=== PATIENT | female | born 1945 | race Caucasian/White ===

== ENCOUNTER 2022-05-15 10:58 | Observation (INO) | payer MEDICARE, MEDICAID ==
[2022-05-15 11:42] LABS: #Eosinphils 0.2 10x3/uL (0.0-0.5); #Monocytes 0.6 10x3/uL (0.0-1.1); #Neutrophils 4.7 10x3/uL (1.5-8.4); %Basophils 0.3 % (0.0-2.0); %Eosinophils 3.1 % (0.0-6.0); %Lymphocytes 18.2 % (18.0-47.0); %Monocytes 9.2 % (0.0-10.0); %Neutrophils 68.8 % (40.0-75.0); ALT (SGPT) 37 U/L (8-55); AST (SGOT) 26 U/L (5-34); Albumin 3.9 g/dL (3.4-4.8); Alkaline Phosphatase 59 U/L (40-110); Anion Gap 13 mmol/L (10-20); BUN (Urea Nitrogen) 16 mg/dL (9.8-20.1); Bilirubin, Total 0.3 mg/dL (0.2-1.2); Calc. Creatinine Clearance 0 mL/min (70-130); Calcium 9.4 mg/dL (7.8-10.44); Carbon Dioxide 25 mmol/L (23-31); Chloride 107 mmol/L (98-107); Estimated GFR 91; Globulin 2.6 g/dL (2.4-3.5); Glucose 117 mg/dL (83-110); Mean Corpuscular HGB CONC 32.9 g/dL (32.0-36.0); Mean Corpuscular Hemoglobin 28.7 pg (27.0-33.0); Mean Corpuscular Volume 87.3 fl (81.6-98.3); Mean Platelet Volume 11.3 fl (7.4-10.4); Platelet Count 240 10x3/uL (150-450); Potassium 4.4 mmol/L (3.5-5.1); Protein, Total 6.5 g/dL (5.8-8.1); RBC Distribution Width 13.6 % (11.5-14.5); Red Blood Cell (RBC) Count 4.18 10x6/uL (3.90-5.03); Sodium 141 mmol/L (136-145); White Blood Cell (WBC) Count 6.8 10x3/uL (3.5-10.5)
[2022-05-15] MEDS ORDERED: Acetaminophen 325 MG TAB PO PRN (13:10)
[2022-05-15 14:25] VITALS: BMI 22.8
[2022-05-15] MEDS ORDERED: Iopamidol 370 76% 100 ML VIAL ONE (14:56)
[2022-05-15 16:04] LABS: Magnesium 2.2 mg/dL (1.6-2.6)
[2022-05-15 16:15] LABS: Troponin I Less than 0.010 ng/mL (< 0.028)
[2022-05-15 18:38] LABS: Troponin I Less than 0.010 ng/mL (< 0.028)
[2022-05-15] MEDS: Sodium Chloride 0.9% 1,000 ML IV SCH (19:11)
[2022-05-15] MEDS: risperiDONE 0.5 MG TAB PO SCH (21:11)
[2022-05-15] MEDS: Mirtazapine 15 MG TAB PO SCH (21:11)
[2022-05-15] MEDS: Melatonin 3 MG TAB PO SCH (21:11)
[2022-05-15] MEDS: Atorvastatin Calcium 40 MG TAB PO SCH (21:11)
[2022-05-16 05:34] LABS: #Eosinphils 0.1 10x3/uL (0.0-0.5); #Monocytes 0.5 10x3/uL (0.0-1.1); #Neutrophils 2.9 10x3/uL (1.5-8.4); %Basophils 0.4 % (0.0-2.0); %Eosinophils 1.8 % (0.0-6.0); %Lymphocytes 30.3 % (18.0-47.0); %Monocytes 10.2 % (0.0-10.0); %Neutrophils 57.1 % (40.0-75.0); Hemoglobin 11.7 g/dL (12.0-15.5); Mean Corpuscular HGB CONC 31.4 g/dL (32.0-36.0); Mean Corpuscular Hemoglobin 29.2 pg (27.0-33.0); Mean Platelet Volume 11.1 fl (7.4-10.4); Platelet Count 218 10x3/uL (150-450); RBC Distribution Width 13.5 % (11.5-14.5); Red Blood Cell (RBC) Count 4.01 10x6/uL (3.90-5.03); White Blood Cell (WBC) Count 5.1 10x3/uL (3.5-10.5)
[2022-05-16 05:41] LABS: Anion Gap 12 mmol/L (10-20); BUN (Urea Nitrogen) 13 mg/dL (9.8-20.1); Calc. Creatinine Clearance 83 mL/min (70-130); Carbon Dioxide 26 mmol/L (23-31); Chloride 109 mmol/L (98-107); Estimated GFR 92; Glucose 92 mg/dL (83-110); Potassium 3.8 mmol/L (3.5-5.1); Sodium 143 mmol/L (136-145)
[2022-05-16] MEDS: Levothyroxine Sodium 88 MCG TAB PO SCH (06:26)
[2022-05-16] MEDS: risperiDONE 0.5 MG TAB PO SCH ×2 (09:42→20:23)
[2022-05-16] MEDS: Aspirin 81 mg Enteric Coated Tablet PO SCH (09:42)
[2022-05-16] MEDS: Cyanocobalamin (Vitamin B-12) 1,000 MCG TAB PO SCH (09:42)
[2022-05-16] MEDS: Sodium Chloride 0.9% 1,000 ML IV SCH (09:50)
[2022-05-16 17:18] LABS: Bilirubin Neg (Negative); Blood, Urine 10 (Negative); Clarity Slightly Cloudy (Clear); Glucose, Urine (Dipstick) Normal (Negative); Ketone, Urine Negative (Negative); Leukocyte 25 (Negative); Nitrite Positive (Negative); Protein, Urine (Dipstick) 15 mg/dl (Neg-Trace); Specific Gravity, Urine 1.005 (1.002-1.036)
[2022-05-16 17:34] LABS: Bacteria/HPF 3+ HPF (None Seen); RBC/HPF 0-3 HPF (0-3); Squamous Epithelial 0-3 HPF (0-3)
[2022-05-16 17:35] LABS: Urine Culture Reflex Yes Yes
[2022-05-16] MEDS: Mirtazapine 15 MG TAB PO SCH (20:23)
[2022-05-16] MEDS: Melatonin 3 MG TAB PO SCH (20:23)
[2022-05-16] MEDS: Atorvastatin Calcium 40 MG TAB PO SCH (20:23)
[2022-05-17] MEDS: Sodium Chloride 0.9% 1,000 ML IV SCH (06:37)
[2022-05-17] MEDS: Levothyroxine Sodium 88 MCG TAB PO SCH (08:27)
[2022-05-17] MEDS: Cyanocobalamin (Vitamin B-12) 1,000 MCG TAB PO SCH (08:28)
[2022-05-17] MEDS: Aspirin 81 mg Enteric Coated Tablet PO SCH (08:28)
[2022-05-17] MEDS: risperiDONE 0.5 MG TAB PO SCH (08:28)
[2022-05-17 16:36] VITALS: BP 112/65; TEMP 97.4
== END 2022-05-17 16:30 | disposition home or self-care (01) ==
LOC: CSHERS 10:58 → CSHTELE 14:11
PROVIDERS: ADMIT Family Medicine; ATTEND Internal Medicine
DX: R00.1 Bradycardia, unspecified (principal); I50.30 Unspecified diastolic (congestive) heart failure; E03.9 Hypothyroidism, unspecified; E78.5 Hyperlipidemia, unspecified; F03.90 Unspecified dementia, unspecified severity, without behavioral disturbance, psychotic disturbance, mood disturbance, and anxiety; K21.9 Gastro-esophageal reflux disease without esophagitis; E46 Unspecified protein-calorie malnutrition; Z68.22 Body mass index [BMI] 22.0-22.9, adult; Z79.82 Long term (current) use of aspirin; Z79.899 Other long term (current) drug therapy; Z88.5 Allergy status to narcotic agent; Z88.8 Allergy status to other drugs, medicaments and biological substances; Z90.49 Acquired absence of other specified parts of digestive tract
CPT/HCPCS: 70450; 71045; 71275; 80048; 81001; 82962; 83735; 84484 ×2; 85025; 85379; 87077; 87086; 87186; 93005 ×2; 93306; 94760 ×3; 97110; 97530 ×2; 99285; U0003; U0005; 36415; 36416; 80053; 84443; 93010; G0378; J7050; Q9967